=== PATIENT | female | born 1955 | race Caucasian/White ===

== ENCOUNTER → 2016-09-11 | Outpatient (CLI) | payer BC ==
[~2016-09-11] MED LIST: BYSTOLIC10 MG PO; COLACE-DPS100 MG PO; EFFEXOR XR DPS150 MG PO; TYLENOL DPS325 MG PO
== END | disposition home or self-care (01) ==
LOC: PTH.S 08:28
DX: C18.9 Malignant neoplasm of colon, unspecified (principal); I10 Essential (primary) hypertension